=== PATIENT | female | born 1995 | race Caucasian/White ===

== ENCOUNTER → 2017-09-09 16:18 | Outpatient (CLI) | payer MEDICAID, SELFPAY ==
[2017-09-09 15:04] VITALS: BP 117/66; BMI 26.9
[2017-09-12 16:10] LABS: Endomysial Antibody IgA Negative (Negative)
[2017-09-13 12:42] LABS: Immunoglobulin A 239 mg/dL (87-352); t-Transglutaminase IgA <2 U/mL (0-3)
== END ==
PROVIDERS: Family Provider Family Medicine; PCP Family Medicine; Visit Provider Surgery
DX: R10.9 Unspecified abdominal pain (principal)
CPT/HCPCS: 36415; 82784; 83516; 86255

== ENCOUNTER 2017-09-23 07:19 | Day surgery (SDC) | payer MEDICAID, SELFPAY ==
--- NOTE | 2017-09-23 | IMM_PTH ---
PATIENT: ANNE DERAS LOC: [facility] U#:[id number] AGE/SX: 22/F ROOM: RE09/23/[address]: Dr. Ashutosh Prince MD : 1995 BED: DIS: 09/23/2017 SPEC #: [id number] RECD: 09/26/17 12:49 STATUS: JAYLYN REDea #: [id number] SYDNIE: 09/23/17 00:[address]: Ashutosh Prince DEPT: IMMUNOHISTOCHEMISTRY RECD BY: Leonila Vee ENTERED: 09/26/17 12:49 SP TYPE: IMMUNO OTHR DR: Dr. Virgilio Clemons MD Tissues: B - Stomach, NOS Procedures: H Pylori (initial) PHYSICIAN & INSTITUTION [place] [id number] SPECIMEN INFORMATION: Tissue Source: B ? Antrum biopsy Clinical Info: Abdomen pain Specimen Number: [id number] CPT code: 67849 METHODOLOGY: Deparaffinized sections of prefer/formalin-fixed tissue or PAP/DQ stained slides are incubated with monoclonal/polyclonal antibodies/oligonucleotide probes. Localization is made via biotin free immunoperoxidase method. Appropriate controls are performed and reacted as expected. Results on target cell population are indicated in the following table: RESULTS: ANTIBODY / CLONE RESULT Block B H Pylori (polyclonal) negative These tests were developed and their performance characteristics determined by [facility]. They may not have been cleared or approved by the U.S. Food and Drug Administration. The FDA has determined that such clearance or approval is not necessary. INTERPRETATION: B. Antrum, biopsy: Negative for Helicobacter pylori organisms. SJ:meenakshi 09/27/17
[2017-09-23 07:36] VITALS: BP 115/69; PULSE 73; RESP 16; TEMP 36.8; O2SAT 99; BMI 26.6
--- NOTE | 2017-09-23 08:52 | EGD_PTH ---
PATIENT: ANNE DERAS LOC: [facility] U#:[id number] AGE/SX: 22/F ROOM: RE09/23/[address]: Dr. Ashutosh Prince MD : 1995 BED: DIS: 09/23/2017 SPEC #: [id number] RECD: 09/23/17 11:07 STATUS: JAYLYN YULISA #: [id number] SYDNIE: 09/23/17 08:[address]: Ashutosh Prince DEPT: SURGICAL PATHOLOGY RECD BY: Zander Graham ENTERED: 09/23/17 12:00 SP TYPE: EGD BIOPSY OTHR DR: Dr. Virgilio Clemons MD Tissues: A - Duodenum, NOS B - Gastric mucous membrane C - Esophageal mucous membrane D - Esophageal mucous membrane Procedures: Special Stain Group II Surgery Specimen Level IV Alcian Blue/PAS (control) HEADER OPERATION: EGD PRE-OP DIAGNOSIS: Abdomen pain TISSUE SUBMITTED: A ? Duodenum biopsy, B ? Antrum biopsy, H. pylori & path, C ? Distal esophagus biopsy, D ? Mid esophagus biopsy MICROSCOPIC DIAGNOSIS A. Duodenal biopsy: Fragments of duodenal mucosa with mild nonspecific chronic inflammation and Eve?s gland hyperplasia. B. Antrum biopsy: Mild gastritis. See microscopic description and comment. C. Distal esophagus, biopsy: Fragments of gastroesophageal mucosa with mild chronic inflammation. Intestinal metaplasia (goblet cell metaplasia) is not identified. See comment. D. Mid esophagus, biopsy: Fragments of squamous epithelium with minimal chronic inflammation. SJ:meenakshi 09/26/17 COMMENT B. The results of immunohistochemistry for Helicobacter pylori will be reported separately ([id number]). D. Alcian blue/PAS stain with matched control is used in the evaluation of the specimen. MICROSCOPIC DESCRIPTION Slides are reviewed. B. The specimen shows fragments of gastric mucosa with chronic inflammatory cell infiltrates in the lamina propria consisting of lymphocytes and plasma cells, consistent with mild chronic gastritis. GROSS DESCRIPTION A - Received in fixative is one container labeled with the patient's name and designated duodenal biopsy. The specimen consists of multiple irregular fragments of light renee soft tissue that in aggregate measure 1.5 x 0.3 x 0.1 cm. The specimen is totally submitted in one cassette. B - Received in fixative is one container labeled with the patient's name and designated antrum biopsy. The specimen consists of one irregular fragment of light renee soft tissue that measures 0.3 x 0.2 x 0.1 cm. The specimen is totally submitted in one cassette. C - Received in fixative is one container labeled with the patient's name and designated distal esophagus biopsy. The specimen consists of multiple irregular fragments of light renee soft tissue that in aggregate measure 0.5 x 0.3 x 0.1 cm. The specimen is totally submitted in one cassette. D - Received in fixative is one container labeled with the patient's name and designated mid esophagus biopsy. The specimen consists of multiple irregular fragments of light renee soft tissue that in aggregate measure 0.5 x 0.2 x 0.1 cm. The specimen is totally submitted in one cassette. / SJ:rg 09/23/17 TC:3 CPT: 94009 x4, 57635
--- NOTE | 2017-09-23 08:58 | PCM.OPRPT ---
Problem List (1) Epigastric abdominal pain Status: Acute Report of Operation Date of Procedure: 09/23/17 Pre-Operative Diagnosis: Epigastric abdominal pain Post-Operative Diagnosis: Small hiatal hernia, possible minimal esophagitis Surgery/Procedure Performed:: Esophagogastroduodenoscopy with biopsies Description of Surgical Findings:: Timeout and informed consent was obtained. 22-year-old female was taken to the endoscopy suite. Her oropharynx was anesthetized with Cetacaine. She was placed in a left lateral decubitus position. Throughout the procedure total of 100 mg Demerol and 3.5 mg of Versed were given as intravenous sedation. Flexible gastroscope was inserted into the esophageal inlet. The proximal mid and distal esophagus did not appear to be remarkable. EG junction was at 40 cm. Very small hiatal hernia. The distal lining the esophagus did not appear to be remarkable. Possibly a very small amount of irritation at the Z line which was regular. The scope was advanced in the stomach. The mucosal lining appear to be normal. The scope was advanced through the pylorus. The first and second portions of the duodenum were inspected and were unremarkable. Duodenal biopsies were obtained. The scope was withdrawn back to the stomach retroflexed the EG junction and cardia inspected. Very small hiatal hernia noted. No evidence of any active inflammation. Biopsy was obtained of the antrum. Excess fluid and air was aspirated free. The scope was withdrawn to the distal esophagus. Right at the Z line where there was potentially a slight amount of inflammation distal esophageal biopsies were obtained. Then mid esophageal biopsies were obtained. She tolerated the procedure well. Excess fluid and air was aspirated free the procedure was completed with. Impression Very small hiatal hernia. Possibly some minimal distal esophagitis. Duodenal and antral and distal esophageal and mid esophageal biopsies are pending. The patient will be notified of these results as they become available. I have not detected at this time a surgical etiology to her discomfort. She will be notified of pathology results as they become available inspecting for possible eosinophilic esophagitis. Previous laboratory inspecting for celiac was negative. The procedure was initiated with medications at 0847. The scope was inserted 0849. Procedure was completed at 0855. D: Dr. Virgilio Prince M.D., F.A.C.S. Type of Anesthesia:: IV Sedation
[2017-09-23 09:01] VITALS: BP 115/62; BP 115/69; PULSE 73; RESP 16; TEMP 36.5; O2SAT 97
[2017-09-23 09:05] VITALS: BP 115/69; BP 122/73; PULSE 66; RESP 16; O2SAT 96
[2017-09-23 09:10] VITALS: BP 115/69; BP 116/72; PULSE 69; RESP 16; O2SAT 96
[2017-09-23 09:16] VITALS: BP 115/69; BP 121/64; PULSE 63; RESP 16; TEMP 36.9; O2SAT 96
[2017-09-23 09:35] VITALS: BP 115/69
== END 2017-09-23 09:40 | disposition home or self-care (01) ==
LOC: EN 07:20 → AC 07:21
PROVIDERS: Family Provider Family Medicine; PCP Family Medicine; Visit Provider Surgery
PROC: (CPT 43239; principal; 2017-09-23 08:10)
DX: K29.70 Gastritis, unspecified, without bleeding (principal); K21.0 Gastro-esophageal reflux disease with esophagitis; K44.9 Diaphragmatic hernia without obstruction or gangrene; K29.80 Duodenitis without bleeding; R19.7 Diarrhea, unspecified; K59.00 Constipation, unspecified
CPT/HCPCS: 43239; 88305; 88313; 88342; J7120

== ENCOUNTER 2019-07-03 12:18 | Emergency (ER) | payer SELFPAY ==
[2019-07-03 12:18] VITALS: BMI 26.9
[2019-07-03 12:19] VITALS: BP 149/86; PULSE 104; RESP 18; TEMP 36.6; O2SAT 98; BMI 30.1
[2019-07-03 13:07] LABS: Bacteria 0 SEEN /hpf (None Seen); Color, Urine Amber (Yellow); Glucose, Dipstick Normal (Normal); Internal QC Validated? YES +Cl - CLEAR BKGD; Ketone-Dipstick Negative (Negative); Leukocyte Esterase-Dipstick 25 /ul (Negative); Mucous, Urine 0 SEEN /hpf (<or=2+); Nitrite-Dipstick Negative (Negative); Occult Blood-Urine 250 /ul (Negative); Pregnancy, Urine Negative Negative; Protein-Dipstick 30 mg/dl (Negative); Squamous Epithelial Cells - UA 0 SEEN /hpf (5-10); Urine Bilirubin Dipstick Negative (Negative); Urine Clarity Sl. Cloudy (Clear); Urine Urobilinogen Normal (Normal); Urine pH 6.5 (5.0 - 8.0)
[2019-07-03 13:12] LABS: Red Blood Cells-Urine 25-50 SEEN /hpf (0-5); White Blood Cells 0-5 SEEN /hpf (0-5)
--- NOTE | 2019-07-03 13:30 | ED.RN ---
PATIENT AWARE THAT TESTS ARE RESULTED, WAITING FOR PHYSICIAN, DENIES FURTHER NEEDS AT THIS TIME. CALL LIGHT WITHIN REACH.
--- NOTE | 2019-07-03 14:38 | ED.DCSUM_ITS ---
- ER Visit Summary Date of Service: 07/03/19 Chief Complaint: Pelvic pain History of Present Illness: The patient is a 23 F history of ovarian cysts and will be worked up soon for possible endometriosis she has an CLIENT CARE REPRESENTATIVE appointment at the [facility]. She states that she has had lower abdominal cramping today. Nausea and diarrhea. Denies any dysuria. No discharge. Her last menstrual period was around June 05. She has had a prior appendectomy. She describes pain as cramping. She is currently trying to get . Had an home test that was negative. Physical Examination: Young female no acute distress vital signs stable afebrile. HEENT exam unremarkable. Neck nontender. No lymphadenopathy. Lungs clear to auscultation bilaterally. Heart regular rhythm no murmur. Abdomen is soft. Nondistended. Normal bowel sounds. She does have tenderness in the suprapubic region and lower abdomen pelvis. Not a McBurney's point tenderness. No right upper quadrant. No hernias or masses no signs of obstruction. She is moving all 4 extremities. Neurovascular intact. No edema. Back is nontender. Neurologically she is awake and alert. Test Results: Urinalysis showed small amount of blood but otherwise no infection. Urine test negative. Emergency Department Course and Treatment: Patient's history and exam may be consistent with possible endometriosis versus other causes of pelvic pain. Her urinalysis test were negative here today. Treatment Plan: Follow-up with her CLIENT CARE REPRESENTATIVE. Tylenol and Motrin for pain. Disposition: Discharge Impression: Pelvic pain of uncertain etiology This note was generated with [employer] dictation software. It may contain incorrect words, spelling, and punctuation that were not noted in review of the chart prior to signing ED Disposition - Plan for ED Patient: Referrals: Virgilio Clemons [Primary Care Provider] -
--- NOTE | 2019-07-03 14:40 | DCINST.ED_ITS ---
ED Disposition - Plan for ED Patient: Disposition: Home or Assisted Living Instructions: PELVIC PAIN, Unknown Cause Prescriptions: Naproxen [Naprosyn] 500 mg PO BID PRN PRN #20 tab PRN Reason: Pain Or Fever Prescription Printed Referrals: Amy Diop DO [STAFF PHYSICIAN] - Keep [facility] appointment Additional Instructions: Your urine and urine test were both negative today. Your pain may or may not be consistent with endometriosis. Follow-up with your [facility] for further evaluation.
[2019-07-03 15:22] VITALS: BP 110/74; PULSE 67; RESP 16; O2SAT 98
--- NOTE | 2019-07-03 15:22 | ED.RN ---
DISCHARGE INSTRUCTIONS GIVEN TO AND REVIEWED WITH PATIENT, PATIENT DENIES QUESTIONS OR CONCERNS AND VOICES UNDERSTANDING OF DISCHARGE INSTRUCTIONS. PT AMBULATES OUT OF ROOM WITHOUT DIFFICULTY.
== END 2019-07-03 15:23 | disposition home or self-care (01) ==
PROVIDERS: Emergency Provider Emergency Medicine; Family Provider Family Medicine; PCP Family Medicine
DX: R10.2 Pelvic and perineal pain (principal); R11.0 Nausea; R19.7 Diarrhea, unspecified; N83.209 Unspecified ovarian cyst, unspecified side
CPT/HCPCS: 81001; 81025; 99282